=== PATIENT | female | born 1965 | race Caucasian/White ===

== ENCOUNTER 2020-09-24 08:14 | Outpatient (CLI) | payer BC ==
--- NOTE | 2020-09-24 10:00 | DEXA Report ---
PROCEDURE: Dexa Spine and/or Hip INDICATIONS: STRESS FRACTURE LEFT FOOT TECHNIQUE: Dual energy x-ray absorptiometry (DXA) was performed on a PROTEIN LOUNGE System. Regions measur ed are the AP Spine, femoral neck, and if needed forearm. COMPARISON: None. FINDINGS: Lumbar Spine: Bone Mineral Density 1.245 g/cm/cm,T score 0.5 Left Femoral Neck: Bone Mineral Density 1.065 g/cm/cm, T score 0.5 (T score greater or equal to -1.0: NORMAL) (T score from -1.1 to -2.4: OSTEOPENIA) (T score less than or equal to -2.5 to: OSTEOPOROSIS) Impression: Normal. Patients with diagnosis of osteoporosis or osteopenia should have regular bone mineral density assess ment. For those eligible for Medicare, routine testing is allowed once every 2 years. Testing frequ ency can be increased for patients who have rapidly progressing disease or for those who are receivin g medical therapy to restore bone mass. Reviewed by: Agustín Marinelli MD on 09/24/2020 9:59 AM PDT Approved by: Agustín Marinelli MD on 09/24/2020 9:59 AM PDT Station ID: [id number]
== END 2020-09-24 08:15 | disposition home or self-care (01) ==
LOC: DI 08:14
PROVIDERS: ATTEND Nurse Practitioner
DX: M84.375A Stress fracture, left foot, initial encounter for fracture (principal)